=== PATIENT | male | born 1990 | race Caucasian/White ===

== ENCOUNTER → 2020-08-11 | Emergency (ER) | payer MEDICAID ==
[~2020-08-11] VITALS: Ht 165.1 cm; Wt 65.9 kg
[~2020-08-11] MED LIST: HYDROCODONE/ACETAMINOPHEN 5-325 MG TABLET PO ONE; IBUPROFEN 600 MG TABLET PO ONE; NOCURR
[2020-08-11 23:10] VITALS: BP 133/77
== END | disposition home or self-care (01) ==
LOC: EMS 21:43
DX: S82.842A Displaced bimalleolar fracture of left lower leg, initial encounter for closed fracture (principal); W17.89XA Other fall from one level to another, initial encounter; Y93.51 Activity, roller skating (inline) and skateboarding; Y92.89 Other specified places as the place of occurrence of the external cause; Y99.8 Other external cause status
CPT/HCPCS: 29515; 99283